=== PATIENT | female | born 1930 | race Caucasian/White ===

== ENCOUNTER 2017-03-21 19:34 | Inpatient (IN) | payer MEDICARE, MEDICAID ==
[~2017-03-21 19:34] MED LIST: ADULT ASPIRIN81 MG; ALPRAZOLAM0.5 MG PO; ALPRAZOLAM1 MG; ASPIR 8181 MG PO; BENAZEPRIL-HCT PO; BETAPACE80 MG PO; COUMADIN2.5 MG; COUMADIN2.5 MG PO; COUMADIN5 MG; COUMADIN5 MG PO; GLUCOSAMINE-CH1 EAC5 PO; LOPRESSOR50 MG; LOPRESSOR50 MG PO; LOTENSIN20 MG; METOPROLOL TART25 MG; MUCUS RELIEF400 MG PO; OMEPRAZOLE20 M2 PO; PREVACID30 MG; SPIRONOLACTONE25 MG; TYLENOL PM EX-1 EACH PO
[2017-03-21 20:42] LABS: BASO % 0.9 % (0-2); BASO ABSOLUTE COUNT 0.1 tho/cmm (0.0-0.2); EOSINOPHIL ABSOLUTE COUNT 0.2 tho/cmm (0.0-0.7); HCT-HEMATOCRIT 39.1 % (34.0-49.0); HGB-HEMOGLOBIN 12.4 gm/dl (12.0-15.5); IMMATURE GRANULOCYTES ABSOLUTE 0.02 tho/cmm (0-0.03); IMMATURE GRANULOCYTES PERCENT 0.2 % (0-0.3); LYMPH % 28.5 % (20-45); LYMPH ABSOLUTE COUNT 2.3 tho/cmm (0.8-4.5); MCH (MEAN CORPUSCULAR HGB) 26.7 pg (28.0-32.0); MCHC MEAN CORPUSCULAR HGB CONC 31.7 % (32.0-36.0); MCV (MEAN CELL VOLUME) 84.1 fl (82.0-96.0); MONO % 8.5 % (0-12); MONOCYTE ABSOLUTE COUNT 0.7 tho/cmm (0.0-1.2); NEUTROPHIL ABSOLUTE COUNT 4.8 tho/cmm (1.6-8.0); NEUTROPHIL-AUTOMATED 4.8 tho/cmm (1.6-8.0); NEUTROPHILS % 59.9 % (40-80); PLATELET COUNT 354 tho/cmm (150-450); RED BLOOD COUNT 4.65 mil/cmm (4.00-5.20); RED CELL DISTRIBUTION WIDTH 14.6 % (12.4-16.4)
[2017-03-21 21:01] LABS: ALBUMIN 3.4 g/dl (3.5-5.0); ALKALINE PHOSPHATASE 70 U/L (33-138); ALT/SGPT 11 U/L (12-78); AST/SGOT 8 U/L (10-40); BILIRUBIN,TOTAL 0.2 mg/dl (0-1.5); BLOOD UREA NITROGEN 18 mg/dl (6-24); CALCIUM 8.9 mg/dl (8.5-10.5); CARBON DIOXIDE-VENOUS 26 mmol/L (22-32); CREATININE 1.41 mg/dl (0.50-1.10); GLUCOSE 189 mg/dL (70-110); MAGNESIUM 1.8 mg/dl (1.8-2.6); eGFR VALUE FOR BLACK 38 mL/Min
[2017-03-21 21:02] LABS: ANION GAP 14 mmol/L (0-20); CHLORIDE 107 mmol/l (96-110); POTASSIUM 4.2 mmol/L (3.7-5.1); SODIUM 143 mmol/L (135-145)
[2017-03-21 21:06] LABS: TSH-THYROID STIMULATING HORM. 3.75 uIU/ml (0.40-3.80)
[2017-03-21 21:48] LABS: URINE BILIRUBIN NEGATIVE (NEG); URINE BLOOD SMALL (NEG); URINE GLUCOSE (UA) NEGATIVE (NEG); URINE KETONE NEGATIVE (NEG); URINE LEUKOCYTE ESTERASE POSITIVE (NEG); URINE NITRITE POSITIVE (NEG); URINE PH 6.5 (5.0-8.0); URINE PROTEIN NEGATIVE (NEG)
[2017-03-21 21:50] LABS: URINE APPEARANCE HAZY; URINE COLOR YELLOW
[2017-03-21 21:56] LABS: URINE BACTERIA 4+
[2017-03-21] MEDS ORDERED: PRADAXA75 M1 PO (22:37)
[2017-03-21] MEDS ORDERED: LOSARTAN-HCTZ1 EAC6 PO (22:38)
[2017-03-21] MEDS ORDERED: XANAX0.5 M1 PO (22:38)
[2017-03-21] MEDS ORDERED: AMIODARONE HCL200 M1 PO (22:39)
[2017-03-21] MEDS ORDERED: METOPROLOL SUCC50 M1 PO (22:39)
[2017-03-21] MEDS ORDERED: CARTIA XT240 M1 PO (22:40)
[2017-03-21] MEDS ORDERED: PROTONIX40 M2 PO (22:41)
[2017-03-21] MEDS ORDERED: PRESERVISION A1 EAC4 PO (22:41)
[2017-03-22 06:03] LABS: BASO % 0.8 % (0-2); BASO ABSOLUTE COUNT 0.1 tho/cmm (0.0-0.2); EOS % 3.3 % (0-7); EOSINOPHIL ABSOLUTE COUNT 0.2 tho/cmm (0.0-0.7); HCT-HEMATOCRIT 36.2 % (34.0-49.0); HGB-HEMOGLOBIN 11.2 gm/dl (12.0-15.5); LYMPH % 31.9 % (20-45); LYMPH ABSOLUTE COUNT 2.3 tho/cmm (0.8-4.5); MCH (MEAN CORPUSCULAR HGB) 26.2 pg (28.0-32.0); MCHC MEAN CORPUSCULAR HGB CONC 30.9 % (32.0-36.0); MCV (MEAN CELL VOLUME) 84.6 fl (82.0-96.0); MEAN PLATELET VOLUME 10.4 cmc (9.4-12.4); MONO % 12.2 % (0-12); MONOCYTE ABSOLUTE COUNT 0.9 tho/cmm (0.0-1.2); NEUTROPHIL ABSOLUTE COUNT 3.7 tho/cmm (1.6-8.0); NEUTROPHIL-AUTOMATED 3.7 tho/cmm (1.6-8.0); NEUTROPHILS % 51.8 % (40-80); PLATELET COUNT 317 tho/cmm (150-450); RED BLOOD COUNT 4.28 mil/cmm (4.00-5.20); RED CELL DISTRIBUTION WIDTH 14.5 % (12.4-16.4); WHITE BLOOD COUNT 7.2 tho/cmm (4.0-10.0)
[2017-03-22 06:27] LABS: ALB/GLOB RATIO 0.9 (0.8-2.0); ALBUMIN 2.8 g/dl (3.5-5.0); ALKALINE PHOSPHATASE 57 U/L (33-138); ALT/SGPT 11 U/L (12-78); ANION GAP 13 mmol/L (0-20); AST/SGOT 10 U/L (10-40); BLOOD UREA NITROGEN 16 mg/dl (6-24); CALCIUM 8.5 mg/dl (8.5-10.5); CARBON DIOXIDE-VENOUS 27 mmol/L (22-32); CHLORIDE 109 mmol/l (96-110); CREATININE 1.14 mg/dl (0.50-1.10); GLUCOSE 95 mg/dL (70-110); SODIUM 145 mmol/L (135-145); eGFR VALUE FOR BLACK 50 mL/Min
[2017-03-22 06:36] LABS: BILIRUBIN,TOTAL 0.4 mg/dl (0-1.5); C-REACTIVE PROTEIN <0.3 mg/dl (0-0.9)
[2017-03-22 07:29] LABS: ESR-ERYTHROCYTE SED RATE 11 mm/hr (0-30)
[2017-03-22] MEDS ORDERED: FLONASE ALLERG9.9 ML (11:39)
[2017-03-22] MEDS ORDERED: SINUS RINSE ST1 EACH (11:40)
== END 2017-03-22 15:25 | disposition left against medical advice (07) | DRG 149 ==
LOC: EDMED 19:34 → EMR2 03-22 00:22 → 5EB 03-22 00:27
PROVIDERS: Emergency Medicine; ADMIT Internal Medicine
PROC: 0HQ0XZZ Repair Scalp Skin, External Approach (ICD-10-PCS; principal; 2017-03-22)
DX: R42 Dizziness and giddiness (principal); I48.0 Paroxysmal atrial fibrillation; W10.9XXA Fall (on) (from) unspecified stairs and steps, initial encounter; E78.5 Hyperlipidemia, unspecified; S01.01XA Laceration without foreign body of scalp, initial encounter; K21.9 Gastro-esophageal reflux disease without esophagitis; I12.9 Hypertensive chronic kidney disease with stage 1 through stage 4 chronic kidney disease, or unspecified chronic kidney disease; N18.9 Chronic kidney disease, unspecified; Y92.009 Unspecified place in unspecified non-institutional (private) residence as the place of occurrence of the external cause; Z79.01 Long term (current) use of anticoagulants; Z88.1 Allergy status to other antibiotic agents; Z88.0 Allergy status to penicillin; Z88.2 Allergy status to sulfonamides; Z88.6 Allergy status to analgesic agent; Z95.0 Presence of cardiac pacemaker
CPT/HCPCS: G8978-GP-CJ; G8979-GP-CI; G8980-GP-CJ; G8987-GO-CJ; G8988-GO-CI; G8989-GO-CJ